=== PATIENT | male | born 1945 | race Caucasian/White ===

== ENCOUNTER 2024-08-05 17:55 | Inpatient (IN) | payer MEDICARE ==
[~2024-08-05] VITALS: Ht 180.3 cm; Wt 79.8 kg
[2024-08-05 18:10] LABS: BASOPHILS # (AUTO) 0.1 K/uL (0.0-0.2); BASOPHILS % (AUTO) 0.8 % (0.0-2.0); EOSINOPHILS # (AUTO) 0.6 K/uL (0.0-0.7); EOSINOPHILS % (AUTO) 7.8 % (0.0-6.0); HEMATOCRIT 45 % (39-51); LYMPHOCYTES # (AUTO) 2.9 K/uL (0.8-4.8); LYMPHOCYTES % (AUTO) 36.5 % (20.0-44.0); MEAN CORPUSCULAR HEMOGLOBIN 28 PG (26.0-33.0); MEAN CORPUSCULAR HGB CONC 33 g/dl (31.0-36.0); MEAN CORPUSCULAR VOLUME 84 fL (80-96); MONOCYTES # (AUTO) 0.6 K/uL (0.1-1.30); MONOCYTES % (AUTO) 7.1 % (2.0-12.0); NEUTROPHILS # (AUTO) 3.8 K/uL (1.8-8.9); NEUTROPHILS % (AUTO) 47.8 % (43.0-81.0); PLATELET COUNT (AUTO) 210 K/uL (150-450); RED BLOOD CELL COUNT(AUTO) 5.37 MIL/uL (4.5-6.0); RED CELL DISTRIBUTION WIDTH 13.7 % (11.5-15.0)
[2024-08-05 18:16] LABS: CALCIUM, SERUM 9.1 mg/dL (8.5-10.1); CARBON DIOXIDE 24 mmol/L (21-32); CHLORIDE 108 mmol/L (98-107); CREATININE 1.2 mg/dL (0.6-1.3); GLUCOSE 100 mg/dL (74-106); POTASSIUM 3.9 mmol/L (3.5-5.1); SODIUM SERUM 137 mmol/L (136-145); UREA NITROGEN, BLOOD 25 mg/dL (7-18)
[2024-08-05 18:31] LABS: ALANINE AMINOTRANSFERASE 12 U/L (12-78); ALBUMIN 3.1 g/dL (3.4-5.0); ALKALINE PHOSPHATASE 82 U/L (46-116); ASPARTATE AMINOTRANSFERASE 12 U/L (15-37); BILIRUBIN,DIRECT 0.1 mg/dL (0.0-0.2); BILIRUBIN,TOTAL 0.5 mg/dL (0.2-1.0); TOTAL PROTEIN, SERUM 7.1 g/dL (6.4-8.2)
[2024-08-05] MEDS ORDERED: ONDANSETRON HCL/PF 4 MG/2 ML VIAL IVP PRN (20:00)
[2024-08-05] MEDS ORDERED: MAG HYDROX/AL HYDROX/SIMETH 30 ML UDC PO PRN (20:00)
[2024-08-05] MEDS ORDERED: MAGNESIUM HYDROXIDE 30 ML UDC PO PRN (20:00)
[2024-08-05 22:00] VITALS: BP_SYST 127; BP_SYST 128; BP_SYST 134; BP_DIAS 75; BP_DIAS 79; BP_DIAS 85; O2SAT 99
[2024-08-05] MEDS ORDERED: IV NS 0.9% 250 ML IV ONE (23:23)
[2024-08-05] MEDS ORDERED: IOHEXOL-300 100 ML VIAL IV ONE (23:23)
[2024-08-05] MEDS: IV NS 0.9% 1,000 ML IV ONE (23:47)
[2024-08-06] VITALS: BP 115/75; TEMP 97.2; O2SAT 99
[2024-08-06 04:00] VITALS: BP 143/79; TEMP 97.7; O2SAT 94
[2024-08-06 07:31] LABS: BASOPHILS # (AUTO) 0.1 K/uL (0.0-0.2); BASOPHILS % (AUTO) 0.9 % (0.0-2.0); EOSINOPHILS # (AUTO) 0.3 K/uL (0.0-0.7); EOSINOPHILS % (AUTO) 3.4 % (0.0-6.0); HEMATOCRIT 48 % (39-51); HEMOGLOBIN 15.6 g/dL (13.5-17.5); LYMPHOCYTES # (AUTO) 1.7 K/uL (0.8-4.8); LYMPHOCYTES % (AUTO) 21.7 % (20.0-44.0); MEAN CORPUSCULAR HEMOGLOBIN 28 PG (26.0-33.0); MEAN CORPUSCULAR HGB CONC 33 g/dl (31.0-36.0); MEAN CORPUSCULAR VOLUME 84 fL (80-96); MONOCYTES # (AUTO) 0.5 K/uL (0.1-1.30); MONOCYTES % (AUTO) 6.5 % (2.0-12.0); NEUTROPHILS # (AUTO) 5.4 K/uL (1.8-8.9); NEUTROPHILS % (AUTO) 67.5 % (43.0-81.0); PLATELET COUNT (AUTO) 213 K/uL (150-450); RED BLOOD CELL COUNT(AUTO) 5.67 MIL/uL (4.5-6.0); RED CELL DISTRIBUTION WIDTH 13.9 % (11.5-15.0); WHITE BLOOD COUNT (AUTO) 8.1 K/uL (4.3-11.0)
[2024-08-06] MEDS: PANTOPRAZOLE 40 MG TABLET.DR PO SCH (07:40)
[2024-08-06 07:57] LABS: CALCIUM, SERUM 8.9 mg/dL (8.5-10.1); PHOSPHORUS 2.7 mg/dL (2.5-4.9)
[2024-08-06 08:00] VITALS: BP 145/73; TEMP 97.3; O2SAT 93
[2024-08-06 08:21] LABS: THYROID STIMULATING HORMONE 0.89 uIU/mL (0.358-3.74)
[2024-08-06 12:00] VITALS: BP 150/84; TEMP 97.7; O2SAT 93
[2024-08-06 15:14] LABS: FREE PSA < 0.06 ng/mL (0.00-45); PROSTATE SPECIFIC ANTIGEN SCR 0.27 ng/mL (0.00-4.00)
[2024-08-06 16:00] VITALS: BP 118/72; TEMP 98.2; O2SAT 95
[2024-08-06 20:00] VITALS: BP 115/69; TEMP 97.7; O2SAT 93
[2024-08-06] MEDS: ACETAMINOPHEN 325 MG TABLET PO PRN (20:03)
[2024-08-07] VITALS: BP 115/69; TEMP 97.7; O2SAT 93
[2024-08-07 04:00] VITALS: BP 134/72; TEMP 98.4; O2SAT 93
[2024-08-07 07:09] LABS: CARCINOEMBRYONIC ANTIGEN (CEA) 6.4 ng/mL (0.0-4.7)
[2024-08-07 07:19] LABS: CALCIUM, SERUM 9.6 mg/dL (8.5-10.1); CREATININE 1.1 mg/dL (0.6-1.3); POTASSIUM 3.6 mmol/L (3.5-5.1)
[2024-08-07 08:00] VITALS: BP 137/80; TEMP 97.9; O2SAT 92
[2024-08-07 08:12] LABS: HEPATITIS B CORE AB, IgM Positive (Negative); HEPATITIS B SURFACE AB (QUAL) Reactive (.)
[2024-08-07] MEDS ORDERED: IOHEXOL-300 100 ML VIAL IV ONE (08:47)
[2024-08-07] MEDS ORDERED: CT SWABBABLE VALVE TRANS SET 1 EA INFUS.SET MC ONE (08:47)
[2024-08-07] MEDS ORDERED: IV NS 0.9% 250 ML IV ONE (08:47)
[2024-08-07 12:00] VITALS: BP 140/73; TEMP 97.6; O2SAT 95
[2024-08-07 16:00] VITALS: BP 125/89; TEMP 97.9; O2SAT 94
[2024-08-07 20:00] VITALS: BP 111/75; TEMP 98.6; O2SAT 94
[2024-08-07] MEDS ORDERED: MENTHOL/CETYLPYRD (CEPACOL) 1 LOZ LOZENGE ONE (23:40)
[2024-08-07] MEDS: MENTHOL/CETYLPYRD (CEPACOL) 1 LOZ LOZENGE PO PRN (23:42)
[2024-08-08] VITALS (7 sets, daily range): BP systolic 43–130; BP diastolic 54–87; TEMP 97.9–98.1; O2SAT 94–99
[2024-08-09] VITALS: BP 100/60; O2SAT 96
[2024-08-09 04:00] VITALS: BP 100/70; TEMP 98.2; O2SAT 96
[2024-08-09 08:00] VITALS: BP 125/78; TEMP 97.8; O2SAT 99
[2024-08-09] MEDS ORDERED: ALBUTEROL FS 2.5 MG/3 ML VIAL.NEB NEB PRN (10:30)
[2024-08-09 12:00] VITALS: BP 107/63; TEMP 97.9; O2SAT 98
[2024-08-09] MEDS ORDERED: HYDROCODONE/APAP 5/325MG TABLET PO PRN (12:00)
[2024-08-09 12:25] LABS: INR 1.02 (0.91-1.10); PARTIAL THROMBOPLASTIN TIME 28.2 SEC (24.3-34.3); PROTHROMBIN TIME 10.8 SECS (9.2-11.1)
[2024-08-09] MEDS: IV D5/ 0.9% NACL 1,000 ML IV PRN (12:28)
[2024-08-09 16:00] VITALS: BP 112/80; TEMP 98; O2SAT 98
[2024-08-09 20:00] VITALS: BP 140/78; TEMP 97.7; O2SAT 96
[2024-08-10] VITALS: BP 126/72; TEMP 97.3; O2SAT 96
[2024-08-10 04:00] VITALS: BP 112/69; TEMP 97.8; O2SAT 98
[2024-08-10 07:07] LABS: D-DIMER 1.09 mg/L(FEU (0.17-0.50); PARTIAL THROMBOPLASTIN TIME 27.9 SEC (24.3-34.3); PROTHROMBIN TIME 10.6 SECS (9.2-11.1)
[2024-08-10 07:13] LABS: BASOPHILS # (AUTO) 0.1 K/uL (0.0-0.2); BASOPHILS % (AUTO) 1.1 % (0.0-2.0); EOSINOPHILS # (AUTO) 0.5 K/uL (0.0-0.7); EOSINOPHILS % (AUTO) 7.1 % (0.0-6.0); HEMATOCRIT 46 % (39-51); HEMOGLOBIN 15.4 g/dL (13.5-17.5); LYMPHOCYTES # (AUTO) 1.9 K/uL (0.8-4.8); MEAN CORPUSCULAR HEMOGLOBIN 28 PG (26.0-33.0); MEAN CORPUSCULAR HGB CONC 33 g/dl (31.0-36.0); MEAN CORPUSCULAR VOLUME 84 fL (80-96); MONOCYTES # (AUTO) 0.6 K/uL (0.1-1.30); MONOCYTES % (AUTO) 7.2 % (2.0-12.0); NEUTROPHILS # (AUTO) 4.6 K/uL (1.8-8.9); NEUTROPHILS % (AUTO) 59.6 % (43.0-81.0); PLATELET COUNT (AUTO) 213 K/uL (150-450); RED BLOOD CELL COUNT(AUTO) 5.49 MIL/uL (4.5-6.0); RED CELL DISTRIBUTION WIDTH 13.5 % (11.5-15.0); WHITE BLOOD COUNT (AUTO) 7.7 K/uL (4.3-11.0)
[2024-08-10 07:26] LABS: ALBUMIN 3.1 g/dL (3.4-5.0); BILIRUBIN,TOTAL 0.9 mg/dL (0.2-1.0); CALCIUM, SERUM 8.9 mg/dL (8.5-10.1); MAGNESIUM 2.1 mg/dL (1.8-2.4); POTASSIUM 3.9 mmol/L (3.5-5.1); TOTAL PROTEIN, SERUM 6.8 g/dL (6.4-8.2)
[2024-08-10 08:00] VITALS: BP 117/72; TEMP 98.1; O2SAT 95
[2024-08-10 12:00] VITALS: BP 134/91; TEMP 97.9; O2SAT 94
[2024-08-10] MEDS ORDERED: LIDOCAINE 5% OINT 35.44 GM TUBE ONE (13:49)
[2024-08-10] MEDS ORDERED: MIDAZOLAM HCL 2 MG/2ML VIAL ONE (14:10)
[2024-08-10] MEDS ORDERED: FENTANYL PF 100MCG/2ML AMPUL ONE (14:10)
[2024-08-10] MEDS ORDERED: ROCURONIUM BROMIDE 50 MG/5 ML ONE (14:11)
[2024-08-10 16:00] VITALS: BP 113/74; TEMP 97.5; O2SAT 94
[2024-08-10] MEDS ORDERED: GUAIFENESIN/CODEINE 10 ML UDC PO PRN (16:00)
[2024-08-10] MEDS ORDERED: GUAIFENESIN/CODEINE PHOS 5 ML UDC PO PRN (16:00)
[2024-08-10 20:00] VITALS: BP 132/82; TEMP 97.7; O2SAT 94
[2024-08-11] VITALS: BP 111/69; TEMP 97.7; O2SAT 95
[2024-08-11 04:00] VITALS: BP 127/71; TEMP 97.3; O2SAT 95
[2024-08-11 07:14] LABS: BASOPHILS % (AUTO) 0.4 % (0.0-2.0); EOSINOPHILS % (AUTO) 0.1 % (0.0-6.0); HEMATOCRIT 45 % (39-51); HEMOGLOBIN 14.8 g/dL (13.5-17.5); LYMPHOCYTES # (AUTO) 1.2 K/uL (0.8-4.8); LYMPHOCYTES % (AUTO) 12.6 % (20.0-44.0); MEAN CORPUSCULAR HEMOGLOBIN 28 PG (26.0-33.0); MEAN CORPUSCULAR HGB CONC 33 g/dl (31.0-36.0); MEAN CORPUSCULAR VOLUME 86 fL (80-96); MONOCYTES # (AUTO) 0.6 K/uL (0.1-1.30); MONOCYTES % (AUTO) 6.1 % (2.0-12.0); NEUTROPHILS # (AUTO) 7.5 K/uL (1.8-8.9); NEUTROPHILS % (AUTO) 80.8 % (43.0-81.0); PLATELET COUNT (AUTO) 213 K/uL (150-450); RED BLOOD CELL COUNT(AUTO) 5.26 MIL/uL (4.5-6.0); RED CELL DISTRIBUTION WIDTH 13.5 % (11.5-15.0); WHITE BLOOD COUNT (AUTO) 9.3 K/uL (4.3-11.0)
[2024-08-11 07:31] LABS: ALBUMIN 3.2 g/dL (3.4-5.0); PHOSPHORUS 3.2 mg/dL (2.5-4.9); POTASSIUM 4.1 mmol/L (3.5-5.1); TOTAL PROTEIN, SERUM 6.9 g/dL (6.4-8.2)
[2024-08-11 08:00] VITALS: BP 109/75; TEMP 97.9; O2SAT 93
== END 2024-08-11 14:24 | disposition home or self-care (01) | DRG 74 ==
LOC: ER 17:57 → TELE1 20:36
PROC: 0B988ZX Drainage of Left Upper Lobe Bronchus, Via Natural or Artificial Opening Endoscopic, Diagnostic (ICD-10-PCS; principal; 2024-08-10 14:30)
DX: G90.89 Other disorders of autonomic nervous system (principal); E44.1 Mild protein-calorie malnutrition; E86.0 Dehydration; E88.09 Other disorders of plasma-protein metabolism, not elsewhere classified; F17.210 Nicotine dependence, cigarettes, uncomplicated; R91.8 Other nonspecific abnormal finding of lung field; R00.1 Bradycardia, unspecified; R97.0 Elevated carcinoembryonic antigen [CEA]; Z68.24 Body mass index [BMI] 24.0-24.9, adult; I70.0 Atherosclerosis of aorta
CPT/HCPCS: 36415; 70450-TC; 71045-TC; 71260-TC; 80048-TC; 80053-TC; 80061-TC; 80076-TC; 82378; 82962-TC; 83615-TC; 83735-TC; 83880; 84100-TC; 84153-TC; 84154-TC; 84443-TC; 84484-TC; 85025-TC; 85396; 85730-TC; 86705; 86706; 86803; 87340; 87517; 93880-TC; 97116-TC; 97530-TC; A4223; G0378; J0330; J1100; J2250; J2405; J2704; J3010; J3490; J7030; J7042; J7050; Q9967